=== PATIENT | female | born 1980 | race Native Hawaiian/Other Pacific Islander ===

== ENCOUNTER 2019-03-26 20:29 | Emergency (ER) | payer MEDICAID ==
[~2019-03-26] VITALS: Ht 165.1 cm; Wt 113.4 kg
[2019-03-27 01:13] VITALS: BP 130/74
[2019-03-27] MEDS ORDERED: IBUPROFEN 800 MG TAB PO ONE (02:24)
== END 2019-03-27 03:53 | disposition left against medical advice (07) ==
LOC: ER 20:32
DX: M79.674 Pain in right toe(s) (principal); Z53.21 Procedure and treatment not carried out due to patient leaving prior to being seen by health care provider
CPT/HCPCS: 73660

== ENCOUNTER 2019-09-01 22:30 | Emergency (ER) | payer MEDICAID ==
[~2019-09-01] VITALS: Ht 165.1 cm; Wt 131.5 kg
[2019-09-02 01:59] VITALS: BP 118/65
== END 2019-09-02 02:06 | disposition home or self-care (01) ==
LOC: ER 22:30
DX: J06.9 Acute upper respiratory infection, unspecified (principal)